=== PATIENT | male | born 1990 | race Caucasian/White ===

== ENCOUNTER 2018-05-06 10:39 | Emergency (ER) | payer OTHER, SELFPAY ==
[2018-05-06 10:47] VITALS: BP 141/95; PULSE 85; RESP 18; TEMP 36.8; O2SAT 99
--- NOTE | 2018-05-06 11:14 | ED_ITS ---
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 He was climbing under some boards and was twisting and then extended his back and had instant pain. The pain has been worsening and radiates down his right leg. He denies weakness, incontinence of bowel or bladder, or saddle anesthesia. Denies urinary retention. Pain has become severe and Tylenol and Aleve are not helping. He has been unable to work for the past 2 days. No previous history of back injuries Related Data Previous Rx's Medication Instructions Recorded cyclobenzaprine 10 mg PO TID PRN #20 tab 05/06/18 hydrocodone-acetaminophen [[place]] 1 tab PO Q6H PRN #14 tab 05/06/18 prednisone 50 mg PO DAILY 7 Days #7 tab 05/06/18 Allergies Allergy/AdvReac Type Severity Reaction Status Date / Time No Known Drug Allergies Allergy Verified 05/06/18 10:51 Review of Systems Review of Systems All systems reviewed & are unremarkable except as noted in HPI and below Constitutional Denies chills, Denies fever(s), Denies lethargy and Denies weakness Eyes Denies change in vision, Denies eye discharge, Denies irritation and Denies loss of vision ENT Ears, Nose, Mouth, and Throat: Denies change in voice, Denies neck pain and Denies sore throat Cardiovascular Denies chest pain, Denies irregular heart rhythm, Denies lightheadedness, Denies palpitations, Denies dyspnea, Denies dyspnea on exertion and Denies orthopnea Respiratory Denies cough, Denies dyspnea, Denies dyspnea on exertion and Denies wheezing Gastrointestinal Gastrointestinal: Denies abdominal pain, Denies change in bowel habits, Denies diarrhea, Denies nausea and Denies vomiting Genitourinary Denies hematuria, Denies flank pain, Denies urinary incontinence and Denies urinary urgency Musculoskeletal Reports back pain and Denies neck pain Integumentary/Breasts Denies pruritus, Denies erythema, Denies rash and Denies wounds Neurologic Denies confusion, Denies loss of vision and Denies weakness Psychiatric Denies anxiety, Denies confusion, Denies depression, Denies homicidal ideation and Denies suicidal ideation Endocrine Denies palpitations Hematologic/Lymphatic Denies easy bruising Allergic/Immunologic Denies wheezing PFSH Social History Smoking Status: Current every day smoker Exam Initial Vital Signs Initial Vital Signs: Vital Signs Temperature 98.3 F 05/06/18 10:47 Pulse Rate 85 05/06/18 10:47 Respiratory Rate 18 05/06/18 10:47 Blood Pressure 141/95 H 05/06/18 10:47 Pulse Oximetry 99 05/06/18 10:47 Const General: cooperative and well developed Nutritional Appearance: well nourished Orientation: alert, awake, oriented x3 and not confused HENMT Head: normocephalic and atraumatic Ears: external ears normal and TM's normal bilaterally Nose: external nose normal and No nasal discharge Face and sinus: sinuses nontender, face symmetric, no sinus tenderness and No dry mucous membranes Mouth: oral mucosae normal and moist mucous membranes Teeth and gingiva: dentition normal Throat: tonsils normal and uvula midline Eyes General: appearance normal, both eyes and all related structures Eyelids: eyelids normal Conjunctivae: conjunctivae normal Sclera: sclerae normal Pupils: PERRL EOM: EOM intact bilaterally Neck Neck: normal visual inspection, trachea midline, No lymphadenopathy, No midline deformity and No JVD Lymphatic: No lymphedema Chest Chest: normal inspection of the chest Resp Effort & Inspection: normal respiratory effort, able to speak in complete sentences, no respiratory distress and no use of accessory muscles Auscultation: clear to auscultation bilaterally, no rales, no rhonchi and no wheezes Cardio Rate: regular rate Rhythm: regular rhythm Heart Sounds: no click, no gallops, no murmurs and no rubs Pulses: normal peripheral pulses GI Inspection: non-distended Palpation: soft, no hepatosplenomegaly, No guarding, No pulsatile mass and No tender Auscultation: normal bowel sounds Back/Spine/Pelvis Back: back tenderness (R SI and lower lumbar area) and No CVA tenderness Cervical Spine: cervical ROM normal and No pain with cervical ROM Thoracic/Lumbar Spine: thoracic and lumbar spine normal to inspection Other: no midline tenderness. Skin General: no rashes or lesions noted, No jaundice and No petechiae Neuro General: alert, oriented x3, gait normal and no focal motor deficits Speech: speech normal Sensory Exam: no sensory deficits noted Other: Strength testing of the right lower extremity is somewhat limited by pain Extrem General: full ROM, no clubbing, cyanosis or edema, no pedal edema and no calf tenderness Psych Appearance: well kempt Mental Status: mental status grossly normal Attitude: cooperative Thought Content: normal and suicidality Judgment: judgment good Course Vital Signs - 8 hr 05/06/18 10:47 Temperature 98.3 F Pulse Rate 85 Respiratory Rate 18 Blood Pressure 141/95 H Pulse Oximetry 99 MDM - Back Pain/Injury Differential Diagnosis Differential diagnosis: Likely lumbar radiculopathy, sciatica and strain of lumbar region MDM Narrative Medical decision making narrative: 27-year-old male presenting with severe right -sided low back pain started while bending and twisting at work. There are no red flags. Started on steroid burst and given hydrocodone for pain. Advised to follow up with primary care provider and return for worsening symptoms. If symptoms not improving, may need MRI but no urgent need for this today. Discharge Plan Departure Patient Disposition: Home, Self-Care Clinical Impression: Low back pain Instructions: DI for Back Pain With Sciatica Activity Restrictions/Additional Instructions: Thank you for trusting is with your care today. You have a pinched nerve in your back causing symptoms today. Take the steroids and pain medications as prescribed. Use Aleve or ibuprofen as 1st line pain medication and use the hydrocodone for severe or refractory pain. Use a muscle relaxer as needed for muscle spasm. Follow up with your primary care provider within 1 week for recheck. Return to the ER for new or worsening symptoms such as incontinence of bowel or bladder, numbness in the groin, or weakness(not pain) of the leg Prescriptions: New cyclobenzaprine 10 mg tablet 10 mg PO TID PRN (Reason: muscle spasm) Qty: 20 RF: 0 hydrocodone-acetaminophen [[place]] 10-325 mg tablet 1 tab PO Q6H PRN (Reason: pain) Qty: 14 RF: 0 prednisone 50 mg tablet 50 mg PO DAILY 7 Days Qty: 7 RF: 0
[2018-05-06 12:31] VITALS: BP 123/77; PULSE 68; RESP 16; O2SAT 97
[2018-05-06] MEDS: HYDROCODONE/ACET 5/325 TABLET 1 TAB PO (12:35)
[2018-05-06] MEDS: predniSONE 20 MG TABLET 60 MG PO (12:36)
== END 2018-05-06 12:46 | disposition home or self-care (01) ==
PROVIDERS: Emergency Provider Emergency Medicine
DX: M54.5 Low back pain (principal); Y93.H9 Activity, other involving exterior property and land maintenance, building and construction
CPT/HCPCS: 99282

== ENCOUNTER 2018-05-22 05:41 | Emergency (ER) | payer OTHER, SELFPAY ==
[2018-05-22 05:51] VITALS: BP 143/89; PULSE 74; RESP 18; TEMP 36.8; O2SAT 100; BMI 32.9
--- NOTE | 2018-05-22 06:09 | DI.RAD.S_ITS ---
PROCEDURE: XR CHEST 2V INDICATIONS: left sided anterior chest pain no trauma TECHNIQUE: 2 views of the chest were acquired. COMPARISON: None. FINDINGS: Surgical changes and devices: None. Lungs and pleura: No pleural effusions or pneumothorax. Lungs are clear. Calcified granuloma within the right lung is present. Mediastinum: Mediastinal contours are normal. Heart size is normal. Bones and chest wall: No suspicious bony abnormalities. Soft tissues appear unremarkable. IMPRESSION: No acute cardiopulmonary process is evident. Dictated by: Patric Clancy M.D. on 05/22/2018 at 8:27 Approved by: Patric Clancy M.D. on 05/22/2018 at 8:28
--- NOTE | 2018-05-22 06:11 | ED.CHESTPAIN ---
HPI - Chest Pain General Chief Complaint: Chest Pain Stated Complaint: LEFT RIB AREA PAIN Time Seen by Provider: 05/22/18 05:50 Source: patient Mode of arrival: ambulatory Limitations: no limitations History of Present Illness HPI narrative: Patient is a 27-year-old male presents with left anterior chest pain. He said yesterday he got out of his friend's car and it started hurting. He denies any injury he does not think he closed the door weird. He has not had any persistent or productive coughing. It hurts every time he breathes in every time he moves and is 1 spot only. It does feel better when he holds it. MD complaint: chest pain Duration: constant Pain location: left chest Severity: moderate Related Data Previous Rx's Medication Instructions Recorded cyclobenzaprine 10 mg PO TID PRN #20 tab 05/06/18 hydrocodone-acetaminophen [[place]] 1 tab PO Q6H PRN #14 tab 05/06/18 Allergies Allergy/AdvReac Type Severity Reaction Status Date / Time No Known Drug Allergies Allergy Verified 05/06/18 10:51 Review of Systems Review of Systems GENERAL: Denies chills, fatigue, fever, HEENT: Denies sore throat, neck pain RESPIRATORY: Denies dyspnea, cough, CARDIOVASCULAR: See HPI GASTROINTESTINAL: Denies nausea, vomiting, abdominal pain MUSCULOSKELETAL: Denies weakness, joint pain, or bony pain SKIN: No rash, no erythema, no pruritus NEUROLOGIC: Denies weakness, dizziness, headache PSYCHIATRIC: No concerning psychosocial issues. 12 point review of systems is negative except for those stated above and HPI All systems reviewed & are unremarkable except as noted in HPI and below PFSH Medical History Chronic back pain (Acute) Social History Smoking Status: Current every day smoker Exam Initial Vital Signs Initial Vital Signs: Vital Signs Temperature 98.2 F 05/22/18 05:51 Pulse Rate 74 05/22/18 05:51 Respiratory Rate 18 05/22/18 05:51 Blood Pressure 143/89 H 05/22/18 05:51 Pulse Oximetry 100 05/22/18 05:51 GENERAL: Well-appearing, well-nourished and in no acute distress. HEENT: Head atraumatic,EOMI, pupils reactive CARDIOVASCULAR: Regular rate and rhythm without murmurs, rubs or gallops. Pain left anterior chest between ribs 7 and 8 pain is reproducible no sign of trauma RESPIRATORY: Breath sounds equal bilaterally, no wheezes rales or rhonchi. ABDOMEN: Soft, nontender. Normoactive bowel sounds all 4 quadrants. No guarding or rebound. : No CVA tenderness EXTREMITIES: Normal range of motion, no clubbing or edema. Neurovascularly intact NEUROLOGICAL: Alert and oriented x4.Normal gait and speech. SKIN: Warm, dry, no laceration, no petechiae, no rashes or lesions. Course Orders Ordered: ED Orders 05/22/18 05:56 EKG-12 Lead Stat 05/22/18 06:09 XR chest 2V Stat Discontinued Medications Ibuprofen (Advil) 800 mg PO NOW ONE Stop: 05/22/18 06:31 Last Admin: 05/22/18 06:32 Dose: 800 mg Ketorolac Tromethamine (Toradol) 60 mg IM NOW ONE Stop: 05/22/18 06:10 Last Admin: 05/22/18 06:24 Dose: 60 mg Vital Signs - 8 hr 05/22/18 05:51 Temperature 98.2 F Pulse Rate 74 Respiratory Rate 18 Blood Pressure 143/89 H Pulse Oximetry 100 [facility] - Chest Pain Imaging Data Chest x-ray: Attestation: I personally reviewed and interpreted this imaging study as follows: My impression: No acute process ECG Data Attestation: I personally reviewed and interpreted this ECG as follows: Prior ECG tracings: not available for review Interpretation: Normal sinus rhythm rate 91 no acute ischemia artifact noted [facility] Narrative Medical decision making narrative: Patient's pain is consistent with costochondritis. Factors for coronary artery disease. X-ray EKG are negative. Is asking for hydrocodone or something stronger than Motrin. His request is denied Motrin is ordered anti-inflammatory. Recommended that he take Tylenol and ibuprofen together on. Discharge Plan Departure Patient Disposition: Home, Self-Care Clinical Impression: Acute costochondritis Instructions: Costochondritis Activity Restrictions/Additional Instructions: *You have been diagnosed with costochondritis *What to do: Likely pulled ligaments and tendons between ribs, this can take a couple of weeks to heal, try ice or heating pad *Continue to take medications as directed -ibuprofen 600 mg every 6-8 hours if needed for pain *Follow up with your primary care provider in 2-3 days *Return to ER if you should have shortness of breath, increasing pain or any new, worsening or concerning symptoms Prescriptions: No Action cyclobenzaprine 10 mg tablet 10 mg PO TID PRN (Reason: muscle spasm) Qty: 20 RF: 0 hydrocodone-acetaminophen [[place]] 10-325 mg tablet 1 tab PO Q6H PRN (Reason: pain) Qty: 14 RF: 0 Referrals: [facility] [Provider Group] [facility] [Provider Group] [facility] [Provider Group]
--- NOTE | 2018-05-22 06:18 | ED_ITS ---
HPI - Chest Pain General Chief Complaint: Chest Pain Stated Complaint: LEFT RIB AREA PAIN Time Seen by Provider: 05/22/18 05:50 Source: patient Mode of arrival: ambulatory Limitations: no limitations History of Present Illness HPI narrative: Patient is a 27-year-old male presents with left anterior chest pain. He said yesterday he got out of his friend's car and it started hurting. He denies any injury he does not think he closed the door weird. He has not had any persistent or productive coughing. It hurts every time he breathes in every time he moves and is 1 spot only. It does feel better when he holds it. MD complaint: chest pain Duration: constant Pain location: left chest Severity: moderate Related Data Previous Rx's Medication Instructions Recorded cyclobenzaprine 10 mg PO TID PRN #20 tab 05/06/18 hydrocodone-acetaminophen [[place]] 1 tab PO Q6H PRN #14 tab 05/06/18 Allergies Allergy/AdvReac Type Severity Reaction Status Date / Time No Known Drug Allergies Allergy Verified 05/06/18 10:51 Review of Systems Review of Systems GENERAL: Denies chills, fatigue, fever, HEENT: Denies sore throat, neck pain RESPIRATORY: Denies dyspnea, cough, CARDIOVASCULAR: See HPI GASTROINTESTINAL: Denies nausea, vomiting, abdominal pain MUSCULOSKELETAL: Denies weakness, joint pain, or bony pain SKIN: No rash, no erythema, no pruritus NEUROLOGIC: Denies weakness, dizziness, headache PSYCHIATRIC: No concerning psychosocial issues. 12 point review of systems is negative except for those stated above and HPI All systems reviewed & are unremarkable except as noted in HPI and below PFSH Medical History Chronic back pain (Acute) Social History Smoking Status: Current every day smoker Exam Initial Vital Signs Initial Vital Signs: Vital Signs Temperature 98.2 F 05/22/18 05:51 Pulse Rate 74 05/22/18 05:51 Respiratory Rate 18 05/22/18 05:51 Blood Pressure 143/89 H 05/22/18 05:51 Pulse Oximetry 100 05/22/18 05:51 GENERAL: Well-appearing, well-nourished and in no acute distress. HEENT: Head atraumatic,EOMI, pupils reactive CARDIOVASCULAR: Regular rate and rhythm without murmurs, rubs or gallops. Pain left anterior chest between ribs 7 and 8 pain is reproducible no sign of trauma RESPIRATORY: Breath sounds equal bilaterally, no wheezes rales or rhonchi. ABDOMEN: Soft, nontender. Normoactive bowel sounds all 4 quadrants. No guarding or rebound. : No CVA tenderness EXTREMITIES: Normal range of motion, no clubbing or edema. Neurovascularly intact NEUROLOGICAL: Alert and oriented x4.Normal gait and speech. SKIN: Warm, dry, no laceration, no petechiae, no rashes or lesions. Course Orders Ordered: ED Orders 05/22/18 05:56 EKG-12 Lead Stat 05/22/18 06:09 XR chest 2V Stat Discontinued Medications Ibuprofen (Advil) 800 mg PO NOW ONE Stop: 05/22/18 06:31 Last Admin: 05/22/18 06:32 Dose: 800 mg Ketorolac Tromethamine (Toradol) 60 mg IM NOW ONE Stop: 05/22/18 06:10 Last Admin: 05/22/18 06:24 Dose: 60 mg Vital Signs - 8 hr 05/22/18 05:51 Temperature 98.2 F Pulse Rate 74 Respiratory Rate 18 Blood Pressure 143/89 H Pulse Oximetry 100 [facility] - Chest Pain Imaging Data Chest x-ray: Attestation: I personally reviewed and interpreted this imaging study as follows: My impression: No acute process ECG Data Attestation: I personally reviewed and interpreted this ECG as follows: Prior ECG tracings: not available for review Interpretation: Normal sinus rhythm rate 91 no acute ischemia artifact noted [facility] Narrative Medical decision making narrative: Patient's pain is consistent with costochondritis. Factors for coronary artery disease. X-ray EKG are negative. Is asking for hydrocodone or something stronger than Motrin. His request is denied Motrin is ordered anti-inflammatory. Recommended that he take Tylenol and ibuprofen together on. Discharge Plan Departure Patient Disposition: Home, Self-Care Clinical Impression: Acute costochondritis Instructions: Costochondritis Activity Restrictions/Additional Instructions: *You have been diagnosed with costochondritis *What to do: Likely pulled ligaments and tendons between ribs, this can take a couple of weeks to heal, try ice or heating pad *Continue to take medications as directed -ibuprofen 600 mg every 6-8 hours if needed for pain *Follow up with your primary care provider in 2-3 days *Return to ER if you should have shortness of breath, increasing pain or any new , worsening or concerning symptoms Prescriptions: No Action cyclobenzaprine 10 mg tablet 10 mg PO TID PRN (Reason: muscle spasm) Qty: 20 RF: 0 hydrocodone-acetaminophen [[place]] 10-325 mg tablet 1 tab PO Q6H PRN (Reason: pain) Qty: 14 RF: 0 Referrals: [facility] [Provider Group] [facility] [Provider Group] [facility] [Provider Group]
[2018-05-22] MEDS: KETOROLAC 60 MG/2 ML VIAL IM (06:24)
[2018-05-22] MEDS: IBUPROFEN 400 MG TABLET 800 MG PO (06:32)
[2018-05-22 07:13] VITALS: PULSE 73; RESP 18; O2SAT 98
== END 2018-05-22 06:42 | disposition home or self-care (01) ==
PROVIDERS: Emergency Provider Emergency Medicine
DX: M94.0 Chondrocostal junction syndrome [Tietze] (principal)
CPT/HCPCS: 71046; 93005; 93010; 96372; 99282; 99283; J1885

== ENCOUNTER 2018-06-01 09:22 | Emergency (ER) | payer OTHER, SELFPAY ==
[2018-06-01 09:22] VITALS: BP 123/72; PULSE 83; RESP 16; TEMP 36.6; O2SAT 99; BMI 32.4
--- NOTE | 2018-06-01 10:04 | ED.BACK ---
HPI - Back Pain/Injury General Chief Complaint: Back Pain/Injury Stated Complaint: BACK PAIN Time Seen by Provider: 06/01/18 09:32 Source: patient Mode of arrival: ambulatory Limitations: no limitations History of Present Illness HPI Narrative: Patient is a 27-year-old male here with back pain here. He was initially seen 05/06/2018 for the same. He was seen again on 05/22/2018 for chest pain and he returns again today with back pain radiating down both legs, more so on the left this time. He says he has noticed that all of sudden he just starts urinating. That has new over the last couple of days. He says he has been taking Tylenol. He previously was seen amount take for pain clean it he was told by 1 doctor that he would need surgery and another doctor that he would need surgery. This is been something ongoing for awhile. MD Complaint: back pain Onset (ago): minute(s) Duration: constant Related Data Home Medications Medication Instructions Recorded Confirmed acetaminophen [Tylenol] 500 mg PO Q4H PRN 06/01/18 06/01/18 Previous Rx's Medication Instructions Recorded hydrocodone-acetaminophen [[place]] 1 tab PO Q6H PRN #10 tab 06/01/18 Allergies Allergy/AdvReac Type Severity Reaction Status Date / Time No Known Drug Allergies Allergy Verified 05/06/18 10:51 Review of Systems Review of Systems All systems reviewed & are unremarkable except as noted in HPI and below Constitutional Denies chills, Denies fever(s), Denies frequent falls, Denies headache(s), Denies lethargy and Denies weakness ENT Ears, Nose, Mouth, and Throat: Denies headache(s) Cardiovascular Denies chest pain, Denies irregular heart rhythm, Denies lightheadedness, Denies palpitations, Denies dyspnea, Denies dyspnea on exertion and Denies orthopnea Respiratory Denies cough, Denies dyspnea, Denies dyspnea on exertion and Denies wheezing Gastrointestinal Gastrointestinal: Denies abdominal pain, Denies change in bowel habits, Denies diarrhea, Denies nausea and Denies vomiting Genitourinary Reports system reviewed and no additional complaints, except as docu Musculoskeletal Reports as per HPI, Reports back pain and Reports tingling Integumentary/Breasts Denies pruritus, Denies erythema, Denies rash and Denies wounds Neurologic Reports as per HPI, Denies frequent falls, Denies headache(s), Reports tingling, Denies paresthesias and Denies weakness Endocrine Denies palpitations Allergic/Immunologic Denies wheezing PFSH Medical History Chronic back pain (Acute) Social History Smoking Status: Current every day smoker Exam Initial Vital Signs Initial Vital Signs: Vital Signs Temperature 97.8 F 06/01/18 09:22 Pulse Rate 83 06/01/18 09:22 Respiratory Rate 16 06/01/18 09:22 Blood Pressure 123/72 H 06/01/18 09:22 Pulse Oximetry 99 06/01/18 09:22 Const General: cooperative and well developed Nutritional Appearance: well nourished Orientation: alert, awake, oriented x3 and not confused Resp Effort & Inspection: normal respiratory effort, able to speak in complete sentences, no respiratory distress and no use of accessory muscles Auscultation: clear to auscultation bilaterally, no rales, no rhonchi and no wheezes Cardio Rate: regular rate Rhythm: regular rhythm Heart Sounds: no click, no gallops, no murmurs and no rubs Pulses: normal peripheral pulses GI Palpation: soft, No firm, No guarding and No tender Percussion: normal to percussion Rectal Exam: normal sphincter tone (Nurse Meseret present for exam) Back/Spine/Pelvis Back: normal to inspection Cervical Spine: normal cervical lordosis Thoracic/Lumbar Spine: thoracic and lumbar spine normal to inspection and straight leg raise positive Sacroiliac Joints: nontender Neuro General: alert, awake and oriented x3 Cranial Nerves: CN's II-XI intact bilaterally Motor: muscle tone normal throughout and strength 5/5 throughout Extrem General: normal to inspection and full ROM Right upper extremity: normal to inspection Left upper extremity: normal to inspection Right lower extremity: normal to inspection Left lower extremity: normal to inspection Course Orders Ordered: ED Orders 06/01/18 10:19 MR lumbar spine wo/w con Stat Discontinued Medications Hydrocodone Bitart/Acetaminophen ([place] 5/325) 1 tab PO NOW ONE Stop: 06/01/18 13:00 Last Admin: 06/01/18 13:00 Dose: 1 tab Ketorolac Tromethamine (Toradol) 60 mg IM NOW ONE Stop: 06/01/18 09:59 Last Admin: 06/01/18 10:06 Dose: 60 mg Vital Signs - 8 hr 06/01/18 12:15 Pulse Rate 74 Respiratory Rate 20 Blood Pressure [Right Arm] 119/53 L Pulse Oximetry 100 MDM - Back Pain/Injury Imaging Data MRI - lumbar: Radiologist's impression: PROCEDURE: MR LUMBAR SPINE WO/W CON INDICATIONS: loss of urine with severe back pain. TECHNIQUE: Noncontrast sagittal T1 spin echo and T2 fast spin echo, sagittal STIR, axial T1 and T2 fast spin echo through the lumbar spine. In cases with scoliosis, additional coronal T2 fast spin echo may be performed. After the administration of contrast, sagittal and axial T1 spin echo with fat saturation through the lumbar spine. COMPARISON: None. FINDINGS: Image quality: There is mild motion artifact. Spine numbering: There is transitional anatomy at the lumbosacral junction. The 1st [id number] vertebra is labeled as L1. Alignment and curvature: There is minimal retrolisthesis at L4-L5 and L5-S1. Marrow: Marrow is of normal overall signal. No acute vertebral body compression fractures. No suspicious marrow enhancement. Spinal cord: Conus medullaris terminates at the L1 level. Visualized spinal cord demonstrates normal signal, without suspicious enhancement. Paraspinous soft tissues: No paravertebral masses or abnormal enhancement. There is mild epidural lipomatosis posteriorly in the lumbar spine at L1-L2 through L5-S1. L1-L2: Normal appearance. L2-L3: Normal appearance. L3-L4: Mild facet arthropathy and ligamentum flavum hypertrophy. There is a minimal disc bulge. There is minimal spinal canal narrowing and minimal left neuroforaminal narrowing. L4-L5: The disc desiccation with minimal loss of disc height and a small broad-based disc bulge. There is mild to moderate facet arthropathy with ligamentum flavum hypertrophy. The findings contribute to mild spinal canal narrowing with moderate right and mild/moderate left neuroforaminal narrowing. L5-S1: Disc desiccation with mild loss of disc height posteriorly and a small broad-based disc bulge. There is also a small posterior annular fissure. Moderate facet arthropathy is present. Findings contribute to mild overall spinal canal narrowing with narrowing of the left lateral recess and suggestion of mass effect on the left descending S1 nerve root. There is moderate to severe bilateral neuroforaminal narrowing. IMPRESSION: 1. Transitional anatomy at the lumbosacral junction as described. Recommend correlation with x-ray prior to any surgical intervention. 2. Multilevel degenerative changes within the lower lumbar spine most prominent at L5-S1 where there is an annular fissure. 3. Mild spinal canal narrowing at L4-L5 and L5-S1 with asymmetric narrowing of the left lateral recess at L5-S1 associated with apparent mass effect on the descending left S1 nerve root. 4. Multilevel neuroforaminal narrowing include moderate to severe bilateral narrowing at L5-S1 and moderate narrowing on the right at L4-5. Dictated by: Yvan Helton M.D. on 06/01/2018 at 12:02 Approved by: Yvan Helton M.D. on 06/01/2018 at 12:20 [facility] Narrative Medical decision making narrative: Patient really has no of focal deficits sounds though she has had longstanding back problems and back pain. Absolutely refusing the Toradol he does not like needles. However he started urinating in states he did not feel it he is completely incontinent all over the ED gurney. He decision for MRI to rule out any cauda equina syndrome Patient does have S1 root mass effect on the MRI however this should not cause complete urinary incontinence. He has a history of chronic ongoing back pain. I recommend that he be seen by a spinal surgery. I offered him 1 more refill of narcotics but had a long discussion that he will no longer be getting the from the ED and he has a primary care physician. I discussed all findings with the patient, Education has been performed regarding treatment plan, diagnosis, warning signs and symptoms and all concerns have been addressed. Verbally agree with and understood all of the above. Discharge Plan Departure Patient Disposition: Home, Self-Care Clinical Impression: Lumbar radiculopathy Discharge Date/Time: 06/01/18 13:20 Interventions: ED Discharge Assessment Last Done: 06/01/18 13:18 Instructions: DI for Lumbar Radiculopathy Activity Restrictions/Additional Instructions: *You have been diagnosed with lumbar radiculopathy *What to do: You may require surgery however not emergent at this time. I recommend orthopedic and spine evaluation. Also physical therapy. *Continue to take medications as directed -[place] 1 tablet every 6 hr if needed for severe pain *Follow up with your primary care provider in 2-3 days, call [facility], Dr. roberson or Dr. Taveras *Return to ER if you should have changes in bowel or bladder habits, increasing weakness any new, worsening or concerning symptoms CONTROLLED SUBSTANCE DISCHARGE (Narcotoic/benzodiazepine/Flexeril/Phenergan) 1. You have been prescribed narcotic medications, it does have acetaminophen/Tylenol/paracetamol in it so do not take extra Tylenol or Tylenol containing products 2. Please understand that we cannot provide further refills of narcotics, benzodiazepines or controlled substances through the ED and her pain management will need to be through your provider. 3. While on these medications you cannot drive or operate heavy machinery. 4. You cannot sign legal documents or perform any duties such as this. 5. As long as you're taking opiate pain medications he should also be taking a stool softener such as Colace, Dulcolax, MiraLAX or prune juice, to help avoid constipation. Prescriptions: New hydrocodone-acetaminophen [[place]] 5-325 mg tablet 1 tab PO Q6H PRN (Reason: severe pain) Qty: 10 RF: 0 No Action acetaminophen [Tylenol] 325 mg Capsule 500 mg PO Q4H PRN (Reason: Pain (Scale Score 1-3)) RF: 0 Referrals: Dex Taveras MD [Physician] - Russ Hedrick MD [Physician] -
[2018-06-01] MEDS: KETOROLAC 60 MG/2 ML VIAL IM (10:06)
--- NOTE | 2018-06-01 10:19 | DI.MRI.S_ITS ---
PROCEDURE: MR LUMBAR SPINE WO/W CON INDICATIONS: loss of urine with severe back pain. TECHNIQUE: Noncontrast sagittal T1 spin echo and T2 fast spin echo, sagittal STIR, axial T1 and T2 fast spin echo through the lumbar spine. In cases with scoliosis, additional coronal T2 fast spin echo may be performed. After the administration of contrast, sagittal and axial T1 spin echo with fat saturation through the lumbar spine. COMPARISON: None. FINDINGS: Image quality: There is mild motion artifact. Spine numbering: There is transitional anatomy at the lumbosacral junction. The 1st [id number] vertebra is labeled as L1. Alignment and curvature: There is minimal retrolisthesis at L4-L5 and L5-S1. Marrow: Marrow is of normal overall signal. No acute vertebral body compression fractures. No suspicious marrow enhancement. Spinal cord: Conus medullaris terminates at the L1 level. Visualized spinal cord demonstrates normal signal, without suspicious enhancement. Paraspinous soft tissues: No paravertebral masses or abnormal enhancement. There is mild epidural lipomatosis posteriorly in the lumbar spine at L1-L2 through L5-S1. L1-L2: Normal appearance. L2-L3: Normal appearance. L3-L4: Mild facet arthropathy and ligamentum flavum hypertrophy. There is a minimal disc bulge. There is minimal spinal canal narrowing and minimal left neuroforaminal narrowing. L4-L5: The disc desiccation with minimal loss of disc height and a small broad-based disc bulge. There is mild to moderate facet arthropathy with ligamentum flavum hypertrophy. The findings contribute to mild spinal canal narrowing with moderate right and mild/moderate left neuroforaminal narrowing. L5-S1: Disc desiccation with mild loss of disc height posteriorly and a small broad-based disc bulge. There is also a small posterior annular fissure. Moderate facet arthropathy is present. Findings contribute to mild overall spinal canal narrowing with narrowing of the left lateral recess and suggestion of mass effect on the left descending S1 nerve root. There is moderate to severe bilateral neuroforaminal narrowing. IMPRESSION: 1. Transitional anatomy at the lumbosacral junction as described. Recommend correlation with x-ray prior to any surgical intervention. 2. Multilevel degenerative changes within the lower lumbar spine most prominent at L5-S1 where there is an annular fissure. 3. Mild spinal canal narrowing at L4-L5 and L5-S1 with asymmetric narrowing of the left lateral recess at L5-S1 associated with apparent mass effect on the descending left S1 nerve root. 4. Multilevel neuroforaminal narrowing include moderate to severe bilateral narrowing at L5-S1 and moderate narrowing on the right at L4-5. Dictated by: Yvan Helton M.D. on 06/01/2018 at 12:02 Approved by: Yvan Helton M.D. on 06/01/2018 at 12:20
--- NOTE | 2018-06-01 10:33 | PC.NURSE ---
pt crying with tears, stand by with dr champagne. pt repeatedly asking for hydrocodone, states, motrin and toradol doesnt work, tylenol 9 pills only works.
--- NOTE | 2018-06-01 10:45 | PC.NURSE ---
explained to pt, plan of care, no hydrocodone at this time, will do mri, verbal understanding.
--- NOTE | 2018-06-01 11:36 | PC.NURSE ---
note on 1030am, delete , wrong pt
[2018-06-01 12:15] VITALS: BP 119/53; PULSE 74; RESP 20; O2SAT 100
--- NOTE | 2018-06-01 12:33 | PC.NURSE ---
pt verbalizing, wanting to leave, because he is not getting any help from his pain and incontinence. reassured, that we are waiting for mri result, explained to pt. and pt agreed to stay and wait. offered ice pack again, states, not helping.
[2018-06-01] MEDS: HYDROCODONE/ACET 5/325 TABLET 1 TAB PO (13:00)
--- NOTE | 2018-06-01 13:00 | PC.NURSE ---
his brother will give him ride home.
== END 2018-06-01 13:20 | disposition home or self-care (01) ==
PROVIDERS: Emergency Provider Emergency Medicine
DX: M54.16 Radiculopathy, lumbar region (principal)
CPT/HCPCS: 36591; 51798; 72158; 96372; 99283; 99285; J1885